=== PATIENT | male | born 1995 | race Caucasian/White ===

== ENCOUNTER 2017-02-16 11:23 | Outpatient (CLI) | payer BC | END 2017-02-16 11:24 | disposition home or self-care (01) | LOC: LABBT 11:23 | PROVIDERS: ATTEND Specialist | DX: Z01.818 Encounter for other preprocedural examination (principal); K80.20 Calculus of gallbladder without cholecystitis without obstruction ==

== ENCOUNTER 2017-02-17 07:55 | Day surgery (SDC) | payer BC ==
[2017-02-16 12:02] VITALS: BMI 29.0
--- NOTE | 2017-02-16 20:31 | HP ---
HISTORY OF PRESENT ILLNESS: A 22-year-old male patient seen by SUSAN Muhammad, nurse practitioner at Dr. Zaire Lozada's office for epigastric right upper quadrant pain. Ultrasound revealed a large g allstone, thickened gallbladder and bile duct of 6 mm. Laboratories obtained reveal a white count 7, hemoglobin 16, sodium 139, BUN 14, creatinine 1.0. Liver function tests normal, bilirubin 0.8, AST 119, ALT 23, alkaline phosphatase 61, lipase 13. MEDICATIONS: None. TOBACCO: None. ALCOHOL: None. PAST SURGICAL AND MEDICAL HISTORY: Noncontributory. PHYSICAL EXAMINATION: VITAL SIGNS: Weight 184 pounds, 66 inches, blood pressure 132/83, pulse 74, temperature 97.9 degrees . HEAD, EYES, EARS, NOSE AND THROAT: Unremarkable. LUNGS: Clear to auscultation. CARDIAC: Regular rate and rhythm without murmur or gallop. ABDOMEN: Soft. Mild tenderness to the right upper quadrant with minimal guarding. Shrestha sign nega tive. ASSESSMENT AND PLAN: Symptomatic gallstones, chronic cholecystitis and cholelithiasis. I would karel mmend laparoscopic cholecystectomy. Risks of infection, bleeding, visceral injury and open procedure was discussed. He consents. Questions answered. I advised to have a low fat diet and this was vadim cribed to him specifically until the time of his cholecystectomy. 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 He is single, lives with his parents.
[2017-02-17] MEDS ORDERED: Levofloxacin 500 mg/D5W 100 ml Premix Bag ONE (08:35)
[2017-02-17] MEDS ORDERED: Ketorolac Tromethamine 30 MG/ML VIAL ONE (08:35)
[2017-02-17] MEDS ORDERED: Bupivacaine/Epinephrine 0.25% 30 ML VIAL ONE (09:54)
[2017-02-17] MEDS ORDERED: Midazolam HCl 2 mg/2 ml Vial ONE (09:55)
[2017-02-17] MEDS ORDERED: Fentanyl 250 MCG/5 ML VIAL ONE (10:00)
[2017-02-17] MEDS ORDERED: Propofol 200 MG/20 ML VIAL ONE (10:10)
[2017-02-17] MEDS ORDERED: Ondansetron HCl/PF 4 MG/2 ML Vial ONE (10:10)
[2017-02-17] MEDS ORDERED: Glycopyrrolate 0.2 MG/ML 5 ML SYRINGE ONE (10:10)
[2017-02-17] MEDS ORDERED: Dexamethasone 20 MG/5 ML VIAL ONE (10:10)
[2017-02-17] MEDS ORDERED: Lidocaine 1% PF 5 ML VIAL ONE (10:10)
--- NOTE | 2017-02-17 12:05 | OP ---
DATE OF PROCEDURE: 02/17/2017 PREOPERATIVE DIAGNOSES: Acute on chronic cholecystitis, cholelithiasis, gallbladder outlet obstructi on with large stone and hydrops of the gallbladder. POSTOPERATIVE DIAGNOSES: Acute on chronic cholecystitis, cholelithiasis, gallbladder outlet obstruct ion with large stone and hydrops of the gallbladder. PROCEDURE PERFORMED: Laparoscopic video cholecystectomy. SURGEON: David Toure M.D. ANESTHESIA: General. Local 0.5% Marcaine with epinephrine, 30 mL. PROCEDURE IN DETAIL: Patient was taken to the operating room, where under general anesthesia, abdome n was clipped of hair, prepared with chloraprep, draped in routine fashion. Local anesthetic infiltr ated into skin and subcutaneous tissue about all the port sites. Infraumbilical incision made and pn eumoperitoneum to 15 mmHg obtained with the Veress needle, replacing it with a 5 port and laparoscope inserted. Right subxiphoid incision made and 11 port placed. Right subcostal incision made midclav icular line and anterior axillary line and 5 mm ports placed. Gallbladder appeared to be normal with a slightly thickened wall, slightly edematous. There was a large stone obstructing the outlet. Janelle er appeared to be normal. Fundus of gallbladder grasped and reflected cephalad. Infundibulum graspe d and reflected laterally. Cystic artery and duct dissected free. Critical view obtained with two-t hirds cystic plate dissection and cystic artery and duct doubly clipped proximally, divided, and gall bladder dissected free from the liver bed obtaining good hemostasis prior to division of final perito deonte attachments. Gallbladder and contents removed and submitted to Pathology. Good hemostasis ensu red in liver bed with cautery. Irrigant and pneumoperitoneum evacuated. All instruments removed and all skin incisions approximated with interrupted subdermal 4-0 Monocryl and DermaGlue applied.
== END 2017-02-17 12:35 | disposition home or self-care (01) ==
LOC: SDC 07:55
PROVIDERS: ATTEND Specialist
PROC: 0FT44ZZ Resection of Gallbladder, Percutaneous Endoscopic Approach (ICD-10-PCS; principal; 2017-02-17)
DX: K80.11 Calculus of gallbladder with chronic cholecystitis with obstruction (principal)
CPT/HCPCS: 88304; J0131; J1100; J1885; J1956; J2001; J2250; J2405; J2704; J3010